=== PATIENT | female | born 1985 | race Asian ===

== ENCOUNTER → 2025-02-09 10:02 | Outpatient (CLI) | payer OTHER, SELFPAY ==
--- NOTE | 2025-02-09 10:05 | DI.RAD.S_ITS ---
PROCEDURE: XR CHEST 2V INDICATIONS: Right-sided chest pain TECHNIQUE: 2 views of the chest were acquired. COMPARISON: None. FINDINGS: Surgical changes and devices: None. Lungs and pleura: Lungs are clear. No pleural effusions or pneumothorax. Mediastinum: Mediastinal contours are normal. Heart size is normal. Bones and chest wall: No suspicious bony abnormalities. Soft tissues appear unremarkable. IMPRESSION: No acute cardiopulmonary abnormality is seen. Approved by: New Issa M.D. on 02/09/2025 at 9:34
== END ==
PROVIDERS: Referring Provider Registered Nurse; Visit Provider Registered Nurse
DX: R07.89 Other chest pain (principal)
CPT/HCPCS: 71046

== ENCOUNTER → 2025-03-26 09:05 | Outpatient (CLI) | payer OTHER, SELFPAY ==
[2025-03-26 10:14] LABS: Hemoglobin A1C% w Est Avg Glu 5.9 % (4.0-6.0)
[2025-03-26 10:48] LABS: Cholesterol 227 mg/dL (140-199); HDL Cholesterol 69 mg/dL (40-60); Triglycerides 41 mg/dL (35-150)
== END ==
LOC: LAB 09:06
PROVIDERS: PCP Family Medicine; Referring Provider Family Medicine; Visit Provider Family Medicine
DX: Z13.220 Encounter for screening for lipoid disorders (principal); Z13.1 Encounter for screening for diabetes mellitus
CPT/HCPCS: 36415; 80061; 83036

== ENCOUNTER → 2025-06-27 07:16 | Outpatient (CLI) | payer OTHER, SELFPAY ==
[2025-06-27 08:13] LABS: Hemoglobin A1C% w Est Avg Glu 5.8 % (4.0-6.0)
[2025-06-27 08:22] LABS: Cholesterol 217 mg/dL (140-199); HDL Cholesterol 67 mg/dL (40-60); Triglycerides 94 mg/dL (35-150)
== END ==
PROVIDERS: PCP Family Medicine; Referring Provider Family Medicine; Visit Provider Family Medicine
DX: Z13.1 Encounter for screening for diabetes mellitus (principal); E78.5 Hyperlipidemia, unspecified
CPT/HCPCS: 36415; 80061; 83036